=== PATIENT | female | born 1950 | race Caucasian/White ===

== ENCOUNTER → 2019-02-09 | Outpatient (CLI) | payer MEDICARE, OTHER ==
--- NOTE | 2019-02-09 15:46 | RAD ---
EXAM DESCRIPTION: IVP Intravenous Pyelogram CLINICAL HISTORY: 68 years Female, LEFT SIDED ABD PN. 2 negative renal stone scans at outside imaging facility past weekend. COMPARISON: Renal stone CT scan images not available for comparison. TECHNIQUE: Supine AP tunnel form placing supervisor image of the abdomen. Reviewed by Dr. Lucio. Nonionic IV contrast injected under Dr. Lucio supervision, followed by immediate AP kidneys. Five minute Supine AP abdomen and pelvis. These images were reviewed by Dr. Lucio. 10 minute Bilateral supine oblique AP abdomen and pelvis. 10 minute AP pelvis. 15 minute AP supine abdomen and pelvis. These additional images were reviewed by Dr. Lucio. 20 minute AP prone abdomen and pelvis. Post void AP supine abdomen and pelvis. These additional images were reviewed by Dr. Lucio. No adverse reactions. FINDINGS: Shift Foreman film of the abdomen and pelvis shows bowel gas and fecal matter overlying the left kidney more than the right. Vascular calcifications in the lower half of the pelvis. No suspicious calcifications overlying the urinary tracts. Immediate nephrogram image shows both kidneys enhancing symmetrically with increased density compared to the surrounding soft tissues. Craniocaudal dimension of the right kidney is 11.7 cm and left kidney 10.8 cm. No filling defects. Lower pole of the right kidney is smaller than the upper pole. 5 minute image shows less density in the bilateral kidneys with contrast now seen in the renal pelvises and proximal and mid ureters bilaterally. Bilateral 10 minute oblique and single AP images were obtained of the abdomen and upper pelvis. Normal configuration of the bilateral renal pelvises and normal caliber of the bilateral ureters. Urinary bladder moderately distended with no extrinsic masses and no radiodense stones. Bilateral oblique images and single AP image at 15 minutes show normal caliber of the bilateral renal pelvises and normal caliber of the included ureters. Post void imaging of the urinary bladder showing no significant urinary retention. Bilateral renal collecting systems with no mass effect or dilation. Bilateral ureters normal caliber. IMPRESSION: Excretory urogram showing no filling defects in either kidney. No hydronephrosis or extrinsic mass effect on the kidneys. Bilateral ureters normal caliber. No mass effect on the urinary bladder or distal ureters. Electronically signed by: Preet Lucio MD 02/09/2019 3:45 PM CDT
== END ==
LOC: RAD 10:02
PROVIDERS: ATTEND Family Medicine
DX: R10.84 Generalized abdominal pain (principal); R30.0 Dysuria

== ENCOUNTER → 2019-09-30 | Outpatient (CLI) | payer MEDICARE, OTHER | LOC: GMAL 14:30 | PROVIDERS: ATTEND Family Medicine | DX: E03.9 Hypothyroidism, unspecified (principal); D51.3 Other dietary vitamin B12 deficiency anemia; E55.9 Vitamin D deficiency, unspecified; I10 Essential (primary) hypertension; Z79.899 Other long term (current) drug therapy ==